=== PATIENT | female | born 1965 | race Caucasian/White ===

== ENCOUNTER 2022-10-12 08:33 | Emergency (ER) | payer MEDICARE, OTHER ==
[~2022-10-12] VITALS: Ht 160 cm; Wt 49.9 kg
[2022-10-12 08:33] VITALS: BP 164/106
[2022-10-12] MEDS ORDERED: PHENOBARBITAL SODIUM IV STA (08:38)
--- NOTE | 2022-10-12 08:42 | ER.PDOC ---
General Chief Complaint: Requesting Medical Care Stated Complaint: N/V Time seen by MD: 08:41 Source: patient Exam Limitations: no limitations History of Present Illness Initial Comments 56-year-old female with a history of alcoholism presents with nausea vomiting x1 day. Patient's last drink was 24 hours ago. Patient received Zofran and IV fluids in route with improvement of symptoms. Patient arrives tremulous tachycardic and moderately hypertensive. Patient denies any abdominal pain. Patient has a GCS of 15 Allergies: Coded Allergies: No Known Drug Allergies (Verified Allergy, Unknown, 10/12/22) Vital Signs First Vital Signs Date Time Temp Pulse Resp B/P (MAP) Pulse Ox O2 Delivery O2 Flow Rate FiO2 10/12/22 08:33 98.0 113 18 10/12/22 08:33 164/106 (125) 98 Room Air* 0 21 Last Vital Signs Date Time Temp Pulse Resp B/P (MAP) Pulse Ox O2 Delivery O2 Flow Rate FiO2 10/12/22 08:33 98.0 113 18 98 10/12/22 08:33 164/106 (125) Room Air* 0 21 Constitutional: see HPI EENTM: no symptoms reported Respiratory: no symptoms reported Cardiovascular: no symptoms reported Gastrointestinal: no symptoms reported Genitourinary: no symptoms reported Musculoskeletal: no symptoms reported Skin: no symptoms reported Psychiatric/Neurological: no symptoms reported Endocrine: no symptoms reported Hematologic/Lymphatic: no symptoms reported All Other Systems: Reviewed and Negative Physical Exam General Appearance: No Apparent Distress Comments General: Tremulous HEENT: Normocephalic, atraumatic, EOM intact Neck: Supple, full ROM Chest: No distress, normal effort Cardiovascular: Tachycardic Extremities: No evidence of trauma, normal ROM Neuro: Able to move all extremities Psych: Appropriate mood and affect Abdomen: Nondistended Results/Orders Results/Orders Orders - SHRUTI CASTANO DO Cbc With Auto Diff (10/12/22 08:38) Comprehensive Metabolic Panel (10/12/22 08:38) Alcohol(Ml) (10/12/22 08:38) Urinalysis (10/12/22 08:38) EKG (10/12/22 08:38) 0.9 % Sodium Chloride (Ns 1000ml) (10/12/22 09:00) Ondansetron Hcl/Pf (Zofran) (10/12/22 09:00) Phenobarbital Sodium (Phenobarbital Sodi (10/12/22 08:38) 0.9 % Sodium Chloride (Ns 1000ml) (10/12/22 08:43) Ondansetron Hcl/Pf (Zofran) (10/12/22 08:44) Phenobarbital Sodium (Phenobarbital Sodi (10/12/22 09:02) Phenobarbital Sodium (Phenobarbital Sodi (10/12/22 09:02) Vital Signs Date Time Temp Pulse Resp B/P (MAP) Pulse Ox O2 Delivery O2 Flow Rate FiO2 10/12/22 08:33 98.0 113 18 98 10/12/22 08:33 98.0 113 18 164/106 (125) 98 Room Air* 0 21 10/12/22 08:33 98.0 113 18 Administered Medications Medications (Trade) Dose Ordered Sig/Mounika Route PRN Reason Start Time Stop Time Status Last Admin Dose Admin Ondansetron HCl (Zofran) 4 mg OT ONCE IV 10/12/22 09:00 10/12/22 09:01 DC 10/12/22 08:47 4 MG Phenobarbital (Phenobarbital Sodium) 260 mg STAT STAT IV 10/12/22 08:38 10/12/22 08:41 DC 10/12/22 09:11 260 MG Sodium Chloride 1,000 ml @ 1,000 mls/hr Q1H ONCE IV 10/12/22 09:00 10/12/22 09:59 10/12/22 08:48 1,000 MLS/HR Laboratory Tests Test 10/12/22 08:37 10/12/22 09:24 White Blood Count 6.0 10^3/uL (4.5-11.0) Red Blood Count 4.00 10^6/uL (4.00-5.20) Hemoglobin 14.4 g/dL (12.0-15.0) Hematocrit 42.3 % (36.0-46.0) Mean Corpuscular Volume 105.8 fL (78-100) H Mean Corpuscular Hemoglobin 36.0 pg (26-34) H Mean Corpuscular Hemoglobin Concent 34.0 g/dL (33-36.5) Red Cell Distribution Width 13.6 % (11.5-14.5) Platelet Count 188 10^3/uL (150-400) Mean Platelet Volume 8.7 fL (7.8-11.0) Neutrophils (%) (Auto) 85.4 % (41.0-85.0) H Lymphocytes (%) (Auto) 7.5 % (24.0-44.0) L Monocytes (%) (Auto) 6.5 % (5.0-12.0) Neutrophils # (Auto) 5.1 10^3/uL (1.8-7.7) Lymphocytes # (Auto) 0.45 10^3/uL1 (1.0-4.8) L Monocytes # (Auto) 0.4 10^3/uL (0.3-0.8) Absolute Immature Granulocyte (auto 0.02 10^3 u/L (0-2) Absolute Eosinophils (auto) 0.0 10^3/uL (0.0-0.2) Immature Granulocytes % 0.30 % (0.00-0.50) Eosinophils % 0.0 % (0.0-5.0) Basophils % 0.3 % (0.0-0.2) H Basophils # 0.0 10^3/uL (0.0-0.1) Sodium Level 143 mmol/L (132-145) Potassium Level 3.3 mmol/L (3.6-5.2) L Chloride Level 104.0 mmol/L (96-109) Carbon Dioxide Level 20.7 mmol/L (20.0-32) Anion Gap 21.6 Blood Urea Nitrogen 5 mg/dL (7-18) L Creatinine 0.97 mg/dL (0.59-1.40) Estimated GFR () 71.6 (>/=60) Est GFR (CKD-EPI)(Non-Afr Citizen Of [place]) 59.2 (>/=60) BUN/Creatinine Ratio 5.0 (10.0-20.0) L Glucose Level 138 mg/dL (70-110) H Calcium Level 8.6 mg/dL (8.4-10.5) Total Bilirubin 2.1 mg/dL (0.2-1.0) H Aspartate Amino Transferase (AST) 207 U/L (0-35) H Alanine Aminotransferase (ALT) 95 U/L (12-78) H Alkaline Phosphatase 167 U/L (50-136) H Total Protein 7.0 g/dL (6.4-8.2) Albumin 3.8 g/dL (3.4-5.0) Globulin 3.2 Albumin/Globulin Ratio 1.187 Serum Alcohol < 3 mg/dL (0-50) Urine Collection Type RANDOM Urine Color YELLOW Urine Appearance HAZY Urine Bilirubin NEGATIVE (NEGATIVE) Urine Ketones 3+ (NEGATIVE) H Urine Specific [place] 1.020 (1.005-1.030) Urine pH 7.5 (4.5-8.0) Urine Protein TRACE (NEGATIVE) Urine Urobilinogen 0.2 E.U./dL (0.2) Urine Nitrate NEGATIVE (NEGATIVE) Urine Leukocyte Esterase NEGATIVE (NEGATIVE) Urine Glucose (Auto)(UA) NEGATIVE (NEGATIVE) Urine Blood NEGATIVE (NEGATIVE) Urine RBC 0-2 RBC/HPF (NONE SEEN) Urine WBC 2-5 WBC/HPF (0-2) Urine Squamous Epithelial Cells MODERATE (<=FEW) Urine Bacteria MODERATE (NONE SEEN) H Urine Hyaline Casts MODERATE (NONE SEEN) A Progress Progress On reexamination symptoms are markedly improved status post phenobarbital. Patient was offered continued observation/treatment in the ED and admission versus transfer for alcohol detox however this time she declined both of these options requesting to be discharged home with an apple juice. Patient was given a short prescription for Zofran and strict return precautions, she displayed sound decision-making capacity for the duration of her stay. Patient was in good condition at time of discharge. MDM template I: Number and complexity of problems. Amount/complexity of data reviewed Pertinent co-morbidities include the following Alcohol dependence Pertinent history was obtained from multiple independent historians. Historians include but are not limited to Patient Medical records were reviewed, including prior external notes and prior discharge summaries Each unique test ordered during this visit was reviewed and interpreted. Information gained from these unique tests were incorporated into the overall patient presentation to help in medical decision making Pertinent abnormal exam findings include but are not limited to the following. None Please refer to remainder of MDM and Procedure sections of this note for independent interpretation of any testing performed by EM physician Patient care was coordinated with other providers, These providers include but are not limited to None II: Risks of complications and/or morbidity or mortality of patient care Patient social status may affect course of care for the following reasons None Need for possible surgical intervention was discussed with patient Need for prescription drug management for medical conditions discussed with patient Need for further testing, both inpatient and outpatient, discussed with patient. Need for any surveillance imaging discussed with patient Diagnosis: Primary: Alcohol withdrawal Secondary: EKG/XRAY/CT/US EKG Comments: Sinus tachycardia, left axis deviation, left anterior supraclavicular block ER DEPART Departure Time of Disposition: 09:36 Disposition: 01 HOME / SELF CARE / HOMELESS Impression: Primary Impression: Alcohol withdrawal Additional Impression: Nausea & vomiting Condition: Improved Additional Instructions: 1) Please follow-up with your primary care doctor in the next 1-2 days. Please call tomorrow for an appointment. If you cannot follow-up with your primary care doctor please return to the ED for any urgent issues. 2) If you have any worsening of symptoms or any other concerns please return to the ED immediately. 3) Please continue taking your home medications as directed. 4) If you were given any prescriptions, please take them as directed. Do not operate heavy machinery while taking narcotic medications. Duration or Time Spent with Pa: 20 Problem Qualifiers Primary Impression: Alcohol withdrawal Complication of substance-induced condition: uncomplicated Qualified Codes: F10.930 - Alcohol use, unspecified with withdrawal, uncomplicated Additional Impression: Nausea & vomiting Vomiting type: unspecified Qualified Codes: R11.2 - Nausea with vomiting, unspecified SHRUTI CASTANO DO October 12, 2022 08:42
[2022-10-12] MEDS ORDERED: NS 1000ML 1,000 ML ONE (08:43)
[2022-10-12] MEDS ORDERED: ZOFRAN ONE (08:44)
[2022-10-12 08:53] LABS: BASOPHIL % 0.3 % (0.0-0.2); LYMPHOCYTES # 0.45 10^3/uL1 (1.0-4.8); LYMPHOCYTES % 7.5 % (24.0-44.0); MONOCYTES # 0.4 10^3/uL (0.3-0.8); MONOCYTES % 6.5 % (5.0-12.0); NEUTROPHIL # 5.1 10^3/uL (1.8-7.7); NEUTROPHILS % 85.4 % (41.0-85.0); PLATELET COUNT 188 10^3/uL (150-400); RED CELL DISTRIBUTION WIDTH 13.6 % (11.5-14.5)
--- NOTE | 2022-10-12 08:56 | PCM.EKG ---
[facility] Test Date: 2022-10-12 Pat Name: STEPH WEBB Department: ER Room: Gender: F Inspector Repairer: DEZ : [id number] Requested By: HOLDEN BLANCA Order Number: [id number] Reading MD: Holden Blanca Measurements Intervals [place] Rate: 104 P: 51 PA: 156 QRS: -54 QRSD: 92 T: 17 QT: 376 QTc: 495 Interpretive Statements Sinus tachycardia Left atrial enlargement Left anterior fascicular block Abnormal R-wave progression, late transition Borderline prolonged QT interval No previous ECG available for comparison Electronically Signed On 10-12-2022 14:55:56 CDT by Holden Blanca Please click the below link to view image of tracing.
[2022-10-12] MEDS ORDERED: ZOFRAN IV ONE (09:00)
[2022-10-12] MEDS ORDERED: NS 1000ML 1,000 ML IV ONE (09:00)
[2022-10-12] MEDS ORDERED: PHENOBARBITAL SODIUM ONE ×2 (09:02)
[2022-10-12 09:16] LABS: CARBON DIOXIDE 20.7 mmol/L (20.0-32)
[2022-10-12 09:30] LABS: BILIRUBIN,URINE NEGATIVE (NEGATIVE); UROBILINOGEN,URINE 0.2 E.U./dL (0.2)
== END 2022-10-12 10:03 | disposition home or self-care (01) ==
LOC: ER 08:33
DX: F10.239 Alcohol dependence with withdrawal, unspecified (principal); R11.2 Nausea with vomiting, unspecified; I10 Essential (primary) hypertension
CPT/HCPCS: 96361; 96375; 96374; 99283; 87086; 80053; 85025; 36415; 82077; 81001; 93005; J7030; J2405; J2560